=== PATIENT | female | born 1950 | race Caucasian/White ===

== ENCOUNTER 2017-09-23 13:15 | Outpatient (CLI) | payer BC ==
--- NOTE | 2017-09-23 16:06 | RAD ---
CHEST PA AND LATERAL: History: 66-year-old female with dyspnea. Comparison: 08-05-17 FINDINGS: Heart size is within normal limits. There are mild increased linear and interstitial markings which appear stable from the prior study. Mild biapical pleural thickening. No confluent pneumonia, overt edema or pleural effusion. IMPRESSION: Mild stable bilateral chronic lung changes. No acute intrathoracic disease. Old granulomatous diseas e. POS: H
== END 2017-09-23 13:16 | disposition home or self-care (01) ==
LOC: CT 13:15 → RAD 13:16
PROVIDERS: ATTEND Internal Medicine Pulmonary Disease
DX: R06.00 Dyspnea, unspecified (principal)
CPT/HCPCS: 71020